=== PATIENT | female | born 1995 | race African-American/Black ===

== ENCOUNTER 2019-11-16 15:27 | Emergency (ER) | payer MEDICAID ==
[~2019-11-16] VITALS: Ht 162.6 cm; Wt 56.7 kg
[2019-11-16 16:03] VITALS: Ht 162.6 cm; Wt 56.7 kg
[2019-11-16 16:47] LABS: BASOPHIL % 0.3 % (0-2); CALCIUM 8.6 mg/dL (8.5-10.1); CARBON DIOXIDE 25.2 mmol/L (21-32); CHLORIDE SERUM 101 mmol/L (98-107); CREATININE SERUM 0.6 mg/dL (0.6-1.0); GFR1 > 60 mL/min; GLUCOSE SERUM 81 mg/dL (74-106); PLATELET COUNT 261 x10^3mcL (130-400); POTASSIUM SERUM 3.6 mmol/L (3.5-5.1); SODIUM SERUM 144 mmol/L (136-145)
[2019-11-16 16:48] LABS: RED CELL DISTRIBUTION WIDTH 16.1 % (11.5-14.5)
[2019-11-16 17:00] LABS: ALBUMIN 4.2 g/dL (3.4-5.0); ALKALINE PHOSPHATASE 69 U/L (46-116); ALT/SGPT 61 U/L (14-59); AST/SGOT 90 U/L (15-37); BILIRUBIN TOTAL 0.3 mg/dL (0.20-1.00); T4(THYROXINE) 7.7 ug/dL (4.7-13.3); TOTAL PROTEIN, SERUM 8.2 g/dL (6.4-8.2)
[2019-11-16 17:19] VITALS: BP 125/79
== END 2019-11-16 17:19 | disposition home or self-care (01) ==
LOC: ED 15:27
PROVIDERS: Emergency Medicine
DX: F41.9 Anxiety disorder, unspecified (principal); R00.2 Palpitations; R06.02 Shortness of breath; R07.89 Other chest pain
CPT/HCPCS: 36415; Q0092

== ENCOUNTER 2020-11-17 18:26 | Inpatient (IN) | payer OTHER ==
[~2020-11-17] VITALS: Ht 160 cm; Wt 68.0 kg
[~2020-11-17 18:26] MED LIST: ATA25 PO; BEN25 PO; FLUOXETINE60 MG PO; FOL1 PO; LAMICTAL25 M2 PO; LIB25 PO; MAC100 PO; NOR5 PO; THI100 PO
[2020-11-17 18:31] VITALS: Ht 160 cm; Wt 68.0 kg
--- NOTE | 2020-11-17 18:51 | NUR ---
PT BIBA FROM HOME FOR POSS ETOH WITHDRAWAL. PER MEDIC THE PT HAS BEEN DRINKING ETOH SINCE 1 YR AGO - GIN 750ML - EVERY TWO DAYS. PT REPORTS HER LAST DRINK WAS 0200 TODAY. SHE STATES SHE HAS FELT NAUSEOUS TODAY. PT ALSO STATES "I'VE BEEN HAVING THOUGHTS ABOUT KILLING MYSELF. I JUST DON'T WANT TO LIVE ANYMORE SOMETIMES." PT REPORTS SHE IS NOT SEEING A PSYCHIATRIST. ASKED PT SUICIDAL PLAN AND SHE STATED "I DONT KNOW, MAYBE TAKE THE ATIVAN PRESCRIPTION I HAVE." PT REPORTS SHE HAS AN ATIVAN PRESCRIPTION HER DOCTOR GAVE HER FOR ETOH WITHDRAWALS. PT DENIES HISTORY OF SUICIDAL ATTEMPT.
--- NOTE | 2020-11-17 19:03 | NUR ---
REPORT GIVEN TO BEN. INFORMED DR GR PT STATING SHE IS SUICIDAL
--- NOTE | 2020-11-17 19:04 | NUR ---
ASSUMED CARE OF PT FROM KIMBERLY DUMONT.
--- NOTE | 2020-11-17 19:11 | NUR ---
PT A&O X4, RESP E/U, EQUAL RISE AND FALL OF THE CHEST. WILL CONT TO MONITOR THE PT.
--- NOTE | 2020-11-17 19:51 | NUR ---
MOTHER JESSE [phone]
[2020-11-17 19:53] LABS: BASOPHIL % 1.7 % (0.2-1.3); PLATELET COUNT 317 x10^3mcL (179-408); RED CELL DISTRIBUTION WIDTH 14.5 % (12.3-17.7)
[2020-11-17 20:17] LABS: CALCIUM 8.9 mg/dL (8.5-10.1); CARBON DIOXIDE 29.3 mmol/L (21-32); CHLORIDE SERUM 99 mmol/L (98-107); CREATININE SERUM 0.7 mg/dL (0.6-1.0); GFR1 > 60 mL/min; GLUCOSE SERUM 89 mg/dL (74-106); POTASSIUM SERUM 3.9 mmol/L (3.5-5.1); SODIUM SERUM 139 mmol/L (136-145)
[2020-11-17 20:23] LABS: ALKALINE PHOSPHATASE 96 U/L (46-116); ALT/SGPT 45 U/L (14-59); AST/SGOT 56 U/L (15-37); BILIRUBIN TOTAL 0.29 mg/dL (0.20-1.00); TOTAL PROTEIN, SERUM 8.1 g/dL (6.4-8.2)
--- NOTE | 2020-11-17 20:31 | NUR ---
PT A&O X4, RESP E/U, EQUAL RISE AND FALL OF THE CHEST. WILL CONT TO MONITOR THE PT.
--- NOTE | 2020-11-17 20:45 | NUR ---
PT HAD A SCABBED WOUND APPROX 2-3 CM ON R INNER THIGH. DRESSING WAS PLACED OVER THE WOUND. NO REDNESS, SWELLING, OR DISCHARGE WAS NOTED FROM THE WOUND.
[2020-11-17 20:47] LABS: AMPHETAMINE QUAL UR NONE DETECTED (See below)
--- NOTE | 2020-11-17 22:02 | NUR ---
PT A&O X4, RESP E/U, EQUAL RISE AND FALL OF THE CHEST. WILL CONT TO MONITOR THE PT.
--- NOTE | 2020-11-17 23:07 | NUR ---
PT A&O X4, RESP E/U, EQUAL RISE AND FALL OF THE CHEST. WILL CONT TO MONITOR THE PT.
--- NOTE | 2020-11-18 00:08 | NUR ---
PT SLEEPING IN GURNEY CALMLY, RESP E/U, EQUAL RISE AND FALL OF THE CHEST, AND NO DISTRESS NOTED. WILL CONTINUE TO MONITOR THE PT.
--- NOTE | 2020-11-18 01:18 | NUR ---
PT SLEEPING IN GURNEY CALMLY, RESP E/U, EQUAL RISE AND FALL OF THE CHEST, AND NO DISTRESS NOTED. WILL CONTINUE TO MONITOR THE PT.
--- NOTE | 2020-11-18 01:18 | NUR ---
LAST NOT WAS NOT DONE BY PALOMA AND COMPLETED BY ME.
--- NOTE | 2020-11-18 02:28 | NUR ---
PT SLEEPING IN GURNEY CALMLY, RESP E/U, EQUAL RISE AND FALL OF THE CHEST, AND NO DISTRESS NOTED. WILL CONTINUE TO MONITOR THE PT.
--- NOTE | 2020-11-18 03:53 | NUR ---
PT SLEEPING IN GURNEY CALMLY, RESP E/U, EQUAL RISE AND FALL OF THE CHEST, AND NO DISTRESS NOTED. WILL CONTINUE TO MONITOR THE PT.
--- NOTE | 2020-11-18 04:23 | NUR ---
PT SLEEPING IN GURNEY CALMLY, RESP E/U, EQUAL RISE AND FALL OF THE CHEST, AND NO DISTRESS NOTED. WILL CONTINUE TO MONITOR THE PT.
--- NOTE | 2020-11-18 05:25 | NUR ---
PT DENIES HAVING ANY SI/HI THOUGHTS ANYMORE OR AT THIS MOMENT.
--- NOTE | 2020-11-18 05:31 | NUR ---
PT SLEEPING CALMLY IN GUREY, RESP E/U, EQUAL RISE AND FALL OF THE CHEST, AND NO DISTRESS NOTED. WILL CONTINUE TO MONITOR THE PT.
--- NOTE | 2020-11-18 06:26 | NUR ---
PT SLEEPING CALMLY IN GURNEY, RESP E/U, EQUAL RISE AND FALL OF THE CHEST, AND NO DISTRESS NOTED. WILL CONT TO MONITOR THE PT.
--- NOTE | 2020-11-18 07:07 | NUR ---
REPORT RECEVIED FROM BEN RN, TO ASSUME CARE OF PT, VSS, RESP E/U, NO DISTRESS NOTED, AAOX4. PT DENIES SI/HI AT THIS TIME. PT IN CLEAR AND FULL VIEW OF NRUSING STATION. WILL CONTINUE TO MONITOR.
--- NOTE | 2020-11-18 07:43 | NUR ---
PT PROVIDED BREAKFAST TRAY AND STS THAT SHE IS NOT HUNGRY AT THIS TIME AND WOULD LIKE TO REST. WILL CONTINUE TO MONITOR.
--- NOTE | 2020-11-18 08:24 | NUR ---
REPORT GIVEN TO ALEXANDER HARRIS TO ASSUME CARE OF PT
--- NOTE | 2020-11-18 09:00 | NUR ---
RECEIVED PATIENT FROM ED NURSE BY MAYA. BREATHING E/U, NO ACUTE RESP DISTRESS NOTED, ON RA. VS 127/64, HR 98, RR 16, SPO2 96 AT ROOM AIR, TEMP 98.1. C/O PAIN AT LEFT LEG 12/11, PT IS AWAKE, ALERT AND ORIENTED. LAST BM 11/16/20. WOUND ON INNER THIGHT COVER WITH CLEAN/DRY DRESSING. IV TO RH 22G HL PATENT/INTACT. C/O NAUSEA, ZOFRAN IVP GIVEN PER EMAR. VICENTE L LIGHT WITHIN REACH, BED AT LOWEST POSITION. WILL MONITOR PATIENT CLOSELY
--- NOTE | 2020-11-18 09:15 | NUR ---
PT IS ROUSABLE, CALM AND COOPERATIVE, VS STABLE.
[2020-11-18 13:00] VITALS: BP 147/108
--- NOTE | 2020-11-18 13:15 | NUR ---
PT IS ROUSABLE, CALM AND COOPERATIVE. DENIES PAIN/WHITTINGTON/DISCOMFORT.
[2020-11-18 13:26] VITALS: BP 128/92
--- NOTE | 2020-11-18 15:00 | NUR ---
PT IS RESTING IN BED. POOR APPETITES. ALERT AND ORIENTED. NO RESP DISTRESS NOTED. DENIES PAIN/DISCOMFORT/N/V. NS RUNNING TO IV AT 100ML/HR. WILL MONITOR CLOSELY
--- NOTE | 2020-11-18 17:45 | NUR ---
PT IS ROUSABLE, CALM AND COOPERATIVE AND C/O FEELING OF SOMETHING CRAWLING ON HER SKIN, DENIES SEEING/HEARING UNSUAL VOICE, LIBRIUM GIVEN
[2020-11-18 17:46] VITALS: BP 135/83
--- NOTE | 2020-11-18 17:51 | NUR ---
C/O FEELING OF SOMETHING CRAWING ON HER SKIN. PT DENIES SEEING/HEARING ABNORMAL SOUND. DENIES PAIN/DISCOMFORT
--- NOTE | 2020-11-18 18:39 | NUR ---
PT AWAKE, ALERT AND ORIENTED. BREATHING E/U, NO ACUTE RESP DISTRESS NOTED, ON RA. POOR APPETITES. DENIES PAIN/DISCOMFORT. C/O FEELING OF SOMETHING CRAWLING ON HER SKIN, LIBRIUM GIVEN AT 1800. NS RUNNING AT 100NL/HR TO RH IV INFUSING WELL. CALL LIGHT WITHIN REACH, BED AT LOWEST POSITION. WILL ENDORSE TO BINDERY OPERATOR NURSE
[2020-11-18 19:53] VITALS: BP 138/91
--- NOTE | 2020-11-18 21:00 | NUR ---
PT C/O NOT BEING ABLE TO SLEEP. MD MADE AWARE. AWAITING MD ORDERS.
--- NOTE | 2020-11-18 22:25 | NUR ---
RECEIVED PT FROM DAY SHIFT NURSE. PT AWAKE, A&O X4 IN BED. ABLE TO MAKE NEEDS KNOWN. SPEECH IS CLEAR. DENIES WHITTINGTON OR DIZZINESS. PT ON TELE #8, READING ST HR 110. DENIES CHEST PAIN OR PRESSURE. RR EVEN AND UNLABORED ON RA. SEIZURE PRECAUTIONS IN PLACE R/T ETOH WITHDRAWAL. IV SITE TO RH IS PATENT AND INTACT. IV SITE INFUSING NS AT 100 ML/HR. BED IN LOWEST POSITION. CALL LIGHT WITHIN REACH. SIDE RAILS UP X2.
[2020-11-19] VITALS (7 sets, daily range): BP systolic 127–150; BP diastolic 86–106
--- NOTE | 2020-11-19 00:44 | NUR ---
PT AWAKE, A&O X4 IN BED. PT IS ROUSABLE, CALM AND COOOPERATIVE. VS STABLE. NO S/S OF ACUTE DISTRESS. DENIES PAIN OR DISCOMFORT. ASSISTED PT TO BATHROOM AND BACK IN BED. RR EVEN AND UNLABORED ON RA. SEIZURE PRECAUTIONS IN PLACE R/T ETOH WITHDRAWAL. BED IN LOWEST POSITION. CALL LIGHT WITHIN REACH. SIDE RAILS UP X2.
--- NOTE | 2020-11-19 06:40 | NUR ---
PT AWAKE, A&O X4 IN BED. PT ROUSABLE, CALM AND COOPERATIVE. NO S/S OF ACUTE DISTRESS. RR EVEN AND UNLABORED ON RA. DENIES PAIN OR DISCOMFORT. SEIZURE PRECAUTIONS IN PLACE R/T ETOH WITHDRAWAL. VS Q 4 HOUR, ETOH PROTOCOL. VS STABLE. ALL NEEDS MET DURING SHIFT. BED IN LOWEST POSITION. CALL LIGHT WITHIN REACH. SIDE RAILS UP X2. WILL ENDORSE CARE TO ONCOMING DAY SHIFT NURSE.
[2020-11-19 07:15] LABS: BASOPHIL % 0.8 % (0.2-1.3); PLATELET COUNT 211 x10^3mcL (179-408); RED CELL DISTRIBUTION WIDTH 13.7 % (12.3-17.7)
[2020-11-19 07:29] LABS: CALCIUM 9.6 mg/dL (8.5-10.1); CARBON DIOXIDE 30.6 mmol/L (21-32); CHLORIDE SERUM 103 mmol/L (98-107); CREATININE SERUM 0.7 mg/dL (0.6-1.0); GFR1 > 60 mL/min; GLUCOSE SERUM 70 mg/dL (74-106); MAGNESIUM 1.5 mg/dL (1.8-2.4); PHOSPHOROUS 4.4 mg/dL (2.5-4.9); POTASSIUM SERUM 4.1 mmol/L (3.5-5.1); SODIUM SERUM 143 mmol/L (136-145)
--- NOTE | 2020-11-19 07:45 | NUR ---
PT RESTING IN BED, AOX4, RESP E/U ON RA. DENIES HEADACHE, DIZZINESS OR N/V. NO ACUTE DISTRESS NOTED. ON TELE 8 SHOWING NSR, HR: 86. IV TO R HAND W/ NO SIGNS OF INFILTRATION, IVF INFUSING WELL. BED IN LOWEST POSITION AND CALL LIGHT WITHIN REACH. WILL CONTINUE TO MONITOR.
--- NOTE | 2020-11-19 12:36 | NUR ---
PT IN BED SLEEPING, [place], RESP E/U ON RA. NO SIGNS OF ACUTE DISTRESS NOTED. WILL CONTINUE TO MONITOR.
--- NOTE | 2020-11-19 18:54 | NUR ---
PT RESTING IN BED, AOX4, REPS E/U ON RA. DENIES HEADACHE, DIZZINESS, PALPITATIONS OR N/V. NO ACUTE DISTRESS NOTED. IV TO R HAND PATENT/INTACT, WNL. BED IN LOWEST POSITION AND CALL LIGHT WITHIN REACH. WILL ENDORSE TO ONCOMING NURSE.
--- NOTE | 2020-11-19 19:56 | NUR ---
PT RECEIVED SITTING UP IN BED WATCHING TV RESTING. A/OX4, CALM AND COOPERATIVE. PT DENIES ANXIETY, TREMORS, SEIZURES AT THIS TIME. TELE 8 ST HR 110. DENIES CHEST PAIN, DIZZINESS, ADN LIGHTHEADEDNESS. RESPIRATIONS EVEN, UNLABORED, RA, DENIES SOB. BS ACTIVE, ABD SOFT AND FLAT, NON-TENDER. DENEIS N/V, DIARRHEA. ADEQUATE UOP DENIES URINARY ISSUES. AMBUALTORY WITH STEADY GAIT. SKIN TEAR R INNER THIGH, DRESSING C/D/I. DENIES PAIN. IV RH 22G, PATENT, RUNNING NS@100ML/HR, NO COMPLICATIONS TO SITE. BED IN LOWEST POSITION, SIDE RAILS X 2, CALL LIGHT WITHIN REACH.
--- NOTE | 2020-11-20 05:23 | NUR ---
NO ACUTE CHANGES OVER NIGHT. PT REMAINS A/OX4 ON RA. CALM AND COOPERATIVE THROUGHOUT SHIFT. NO TREMORS OR SEIZURES NOTED OR REPORTED. PT C/O ITCHINESS X 1, ATARAX ADMINISTERED ORDERED, EFFECTIVE. PT C/O DIFFICULTY SLEEPING, LIBRIUM ADMINISTERED X 1, EFFECTIVE. IV RH PATENT, RUNNING NS@100ML/HR, NO COMPLICATIONS TO SITE. BED IN LOWEST POSITION, SIDE RAILS X 2, CALL LIGHT WIHTIN REACH.
[2020-11-20 05:35] VITALS: BP 126/82
[2020-11-20 06:52] LABS: BASOPHIL % 0.6 % (0.2-1.3); PLATELET COUNT 216 x10^3mcL (179-408)
[2020-11-20 07:24] LABS: CALCIUM 8.9 mg/dL (8.5-10.1); CARBON DIOXIDE 33.4 mmol/L (21-32); CHLORIDE SERUM 102 mmol/L (98-107); CREATININE SERUM 0.7 mg/dL (0.6-1.0); GFR1 > 60 mL/min; GLUCOSE SERUM 88 mg/dL (74-106); MAGNESIUM 1.7 mg/dL (1.8-2.4); POTASSIUM SERUM 3.2 mmol/L (3.5-5.1); SODIUM SERUM 139 mmol/L (136-145)
--- NOTE | 2020-11-20 07:46 | NUR ---
PT RECEIVED AAOX4 LYING IN BED IN NO ACUTE DISTRESS.PT DENIES ANY PAINOR DISCOMFORT AT THIS MOMENT. IV TO RIGH HAND PATENT.NO SWELLING OR INFLAMMATION NOTED.CALL LIGHT IN REACH AND NEEDS ATTENDED TO. BED IN LOWEST POSITION.
[2020-11-20 08:15] VITALS: BP 120/83
--- NOTE | 2020-11-20 09:55 | NUR ---
PT RESTING IN BED IN NO APPARENT DISTRESS.DRESSING TO LEFT INNER THIGH APPLIED.AREA APPEARS TO HAVE SCARRED, NO BLEEDING. PT REQUESTING BANDAGE TO AREA.
--- NOTE | 2020-11-20 11:27 | NUR ---
PTS K+ AND MG LEVELS REPORTED TO MAID HOUSEKEEPER BRONSON. NEW ORDERS OBTAINED FOR 2G OF MAG AND 40MEQ OF PO K+. PT NOTIFIED. ORDERS NOTED AND CARRIED OUT.
[2020-11-20 11:59] VITALS: BP 140/90
--- NOTE | 2020-11-20 13:23 | NUR ---
PT RESTING IN BED AAOX4 IN NO APPARENT DISTRES. DENIES ANY SUICIDAL IDEATIONS AT THIS MOMENT.PT DENIES PAIN OR DISCOMFORT AT THIS MOMENT. CALL LIGHT IN REACH AND BED AT LOWEST POSITION.
--- NOTE | 2020-11-20 16:17 | NUR ---
PT C/O TENDERNESS TO RIGHT HAND IV, NO SWELLING REDNESS OR WARMTH NOTED TO SITE,IV NOT FLUSHING. NEW 22G IV STARTED TO LEFT FA.
[2020-11-20 17:07] VITALS: BP 145/94
--- NOTE | 2020-11-20 17:51 | NUR ---
PT AA0X4 LAYING IN BED IN NO APPARENT DISTRESS. RESP E/U ON RA. DENIES ANY SI AT THIS MOMENT. PT IN GOOD SPIRITS TODAY, "FEELING BETTER". DENIES ANY PAIN OR DISCOMFORT. IV TO LFA PATENT.CALL LIGHT IN REACH AND BED AT LOWEST POSITION.
--- NOTE | 2020-11-20 19:28 | NUR ---
RECEIVED PT FROM DAY SHIFT NURSE, PT IS RESTING IN BED AWAKE AND ALERT A&OX4. REPORTS THAT SHE "FEELS GOOD" AND DENIES FEELING DEPRESSED AT THIS TIME. CALM AND COOPERATIVE WITH CARE, APPEARS TO BE IN GOOD SPIRITS. TELE 8, SR-ST. DENIES CP, DIZZINESS, WHITTINGTON, N/V AND PALPITATIONS. PALPABLE PULSES, NO EDEMA NOTED. BREATHING IS EVEN AND UL, LUNG SOUNDS CTA. NO SOB OR ACUTE RESPIRATORY DISTRESS NOTED. BOWEL SOUNDS ACTIVE X4, ABD IS SOFT AND ROUND. AMBULATORY AT BASELINE, NO WEAKNESS NOTED. IV TO LAC, CDI AND PATENT, FLUSHING WELL. NO ERYTHEMA NOTED. NO C/O PAIN OR DISCOMFORT AT THIS TIME. BED IN LOWEST POSITION. CALL LIGHT IS W/IN REACH. WILL CONTINUE TO MONITOR.
[2020-11-20 21:08] VITALS: BP 124/85
--- NOTE | 2020-11-21 | NUR ---
PT IS RESTING IN BED AWAKE AND ALERT. NO C/O PAIN OR DISCOMFORT AT THIS TIME. BREATHING REMAINS EVEN AND UL ON RA, NO SOB NOTED. REMAINS IN STABLE CONDITION. BED IN LOWEST POSITION. CALL LIGHT IS W/IN REACH. WILL CONTINUE TO MONITOR.
--- NOTE | 2020-11-21 05:56 | NUR ---
PT IS RESTING IN BED WITH EYES CLOSED BUT EASY TO AROUSE. NO C/O PAIN OR DISCOMFORT THROUGHOUT SHIFT. BREATHING REMAINS EVEN AND UL, NO SOB NOTED. DENIES FEELING DEPRESSED AT THIS TIME, APPEARS TO BE IN GOOD SPIRITS. CALM AND COOPERATIVE WITH CARE AND SHOWS INITIATIVE TO GET BETTER. BED IN LOWEST POSITION. CALL LIGHT IS W/IN REACH. NO SIGNIFICANT CHANGES AT THIS TIME. REMAINS IN STABLE CONDITION. ALL NEEDS HAVE BEEN MET. WILL ENDORSE CARE TO DAY SHIFT NURSE.
[2020-11-21 06:10] VITALS: BP 122/88
[2020-11-21 06:30] LABS: BASOPHIL % 0.9 % (0.2-1.3)
[2020-11-21 06:36] LABS: CALCIUM 9.1 mg/dL (8.5-10.1); CARBON DIOXIDE 23.2 mmol/L (21-32); CHLORIDE SERUM 104 mmol/L (98-107); CREATININE SERUM 0.6 mg/dL (0.6-1.0); GFR1 > 60 mL/min; GLUCOSE SERUM 89 mg/dL (74-106); MAGNESIUM 1.9 mg/dL (1.8-2.4); POTASSIUM SERUM 3.5 mmol/L (3.5-5.1); SODIUM SERUM 139 mmol/L (136-145)
[2020-11-21 06:54] LABS: PLATELET COUNT 170 x10^3mcL (179-408)
[2020-11-21 07:12] LABS: rbc morphology (normal/abnorm) NORMAL (NORMAL)
--- NOTE | 2020-11-21 07:47 | NUR ---
PT RESTING IN BED IN NO APPARENT DISTRESS. LYING IN BED AOX4 AND AROUSABLE. RESP E/U ON RA, DENIES ANY PAIN OR SOB. IV TO LFA PATENT. CALL LIGHT IN REACH AND BED AT LOWEST POSITION.
[2020-11-21 08:13] VITALS: BP 134/86
[2020-11-21] MEDS ORDERED: LAM25 PO (10:30)
[2020-11-21] MEDS ORDERED: PROZ20 PO (10:30)
[2020-11-21] MEDS ORDERED: NOR5 PO (10:30)
[2020-11-21] MEDS ORDERED: THI100 PO (10:31)
[2020-11-21] MEDS ORDERED: FOL1 PO (10:31)
[2020-11-21] MEDS ORDERED: LIB25 PO (10:31)
[2020-11-21] MEDS ORDERED: ATA25 PO (10:33)
[2020-11-21 11:30] VITALS: BP 140/90
[2020-11-21 12:16] VITALS: BP 130/87
--- NOTE | 2020-11-21 13:32 | NUR ---
PT DISCHARGED HOME VIA PRIVATE VEHICLE AAOX4 AND ABLE TO AMBULATE PERSELF. PT GIVEN INSTRUCTIONS ON MEDICATIONS AND NOTIFIED OF RX SENT TO LOCAL PHARMACY. PT VERBALIZED UNDERSTANDING INSTRUCTIONS. IV D/C'D UPON DISCHARGE. IV INTACT.NO SWELLING OR EDEMA NOTED TO SITE. PT DENIES ANY PAIN OR TENDERNESS.PT DENIES ANY SUICIDAL IDEATIONS OR PLANS.
== END 2020-11-21 13:20 | disposition home or self-care (01) | DRG 53 ==
LOC: ED 18:26 → DU 11-18 04:37
PROVIDERS: Emergency Medicine; Family Medicine; ADMIT Internal Medicine; ATTEND Internal Medicine
DX: G40.89 Other seizures (principal); S09.90XA Unspecified injury of head, initial encounter; R45.851 Suicidal ideations; E83.42 Hypomagnesemia; Z20.822 Contact with and (suspected) exposure to COVID-19; Z60.2 Problems related to living alone; F32.9 Major depressive disorder, single episode, unspecified; F41.9 Anxiety disorder, unspecified; I10 Essential (primary) hypertension; F19.10 Other psychoactive substance abuse, uncomplicated; E87.6 Hypokalemia; Z71.51 Drug abuse counseling and surveillance of drug abuser
CPT/HCPCS: 82962; 97116-GP; G0378; G0480; J2060; J2405; J3475; J3490; J7030; U0003

== ENCOUNTER 2020-12-08 17:00 | Emergency (ER) | payer OTHER ==
[~2020-12-08] VITALS: Ht 162.6 cm; Wt 68.0 kg
[~2020-12-08 17:00] MED LIST changes: +LAM25 PO; +PROZ20 PO
[2020-12-08 17:10] VITALS: Ht 162.6 cm; Wt 68.0 kg
[2020-12-08 17:46] LABS: BASOPHIL % 0.4 % (0.2-1.3); PLATELET COUNT 314 x10^3mcL (179-408)
[2020-12-08 18:02] LABS: UA SPECIFIC GRAVITY 1.025 (1.005-1.035); microscopic required? YES; urine erythrocyte NEGATIVE (NEGATIVE)
[2020-12-08 18:19] LABS: CALCIUM 9.7 mg/dL (8.5-10.1); CARBON DIOXIDE 27.9 mmol/L (21-32); CHLORIDE SERUM 95 mmol/L (98-107); CREATININE SERUM 0.7 mg/dL (0.6-1.0); GFR1 > 60 mL/min; GLUCOSE SERUM 103 mg/dL (74-106); POTASSIUM SERUM 3.4 mmol/L (3.5-5.1); SODIUM SERUM 134 mmol/L (136-145)
[2020-12-08 18:21] LABS: AMPHETAMINE QUAL UR NONE DETECTED (See below)
[2020-12-08 18:23] LABS: ALBUMIN 4.3 g/dL (3.4-5.0); ALKALINE PHOSPHATASE 91 U/L (46-116); ALT/SGPT 71 U/L (14-59); AST/SGOT 94 U/L (15-37); BILIRUBIN TOTAL 0.8 mg/dL (0.20-1.00)
[2020-12-08 18:26] LABS: TOTAL PROTEIN, SERUM 8.6 g/dL (6.4-8.2)
[2020-12-08] MEDS ORDERED: LIB25 PO (18:51)
[2020-12-08 19:27] VITALS: BP 126/83
== END 2020-12-08 20:05 | disposition home or self-care (01) ==
LOC: ED 17:00
PROVIDERS: Emergency Medicine
DX: F19.10 Other psychoactive substance abuse, uncomplicated (principal); E87.8 Other disorders of electrolyte and fluid balance, not elsewhere classified; F10.239 Alcohol dependence with withdrawal, unspecified; I10 Essential (primary) hypertension; J45.909 Unspecified asthma, uncomplicated
CPT/HCPCS: J2060; J7030